=== PATIENT | male | born 2000 | race Caucasian/White ===

== ENCOUNTER 2021-12-05 14:32 | Emergency (ER) | payer OTHER, MEDICAID, SELFPAY ==
[2021-12-05 14:34] VITALS: BP 135/76; PULSE 89; RESP 16; TEMP 36.3; O2SAT 95; BMI 41.8
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
== END 2021-12-05 15:06 | disposition home or self-care (01) ==
LOC: ED 15:04
PROVIDERS: Emergency Provider Emergency Medicine; PCP Pediatrics; Visit Provider Emergency Medicine
DX: S06.0X0A Concussion without loss of consciousness, initial encounter (principal); V89.2XXA Person injured in unspecified motor-vehicle accident, traffic, initial encounter; Y93.9 Activity, unspecified; Y92.9 Unspecified place or not applicable
CPT/HCPCS: 99282